=== PATIENT | male | born 2000 | race Caucasian/White ===

== ENCOUNTER 2025-07-27 11:07 | Emergency (ER) | payer OTHER, SELFPAY ==
[2025-07-27 11:12] VITALS: BP 162/80; PULSE 111; RESP 14; TEMP 36.4; O2SAT 100; BMI 21.4
--- NOTE | 2025-07-27 13:38 | ED.ABDPAIN ---
HPI - Abdominal Pain General Chief Complaint: Fever Stated Complaint: Constipated for a wk, bleeding Time Seen by Provider: 07/27/25 11:44 Mode of arrival: Ambulatory History of Present Illness HPI narrative: 25 years old male came today complaining of constipation, rectal pain, rectal bleeding for the last 2 weeks without fever, abdominal pain, vomiting, chest pain, shortness of breath, runny nose, sore throat, coughing, weight loss, history of Crohn disease, inflammatory bowel disease or family history of inflammatory bowel disease or bowel cancer or colon cancer. Related Data Home Medications ?Medication ?Instructions ?Recorded ?Confirmed albuterol sulfate 90 mcg/actuation 2 puff INH Q4HP PRN ##0 09/29/16 aerosol inhaler (Ventolin HFA) Previous Rx's ?Medication ?Instructions ?Recorded hydroxyzine pamoate 25 mg capsule 25 mg PO Q4HP PRN #40 caps 10/04/16 (Vistaril) oxycodone 5 mg tablet 5 mg PO Q4HP PRN #40 tabs 10/04/16 hydroxyzine pamoate 25 mg capsule 25 mg PO Q4HP PRN #40 caps 12/22/17 (Vistaril) hydrocortisone acetate 25 mg 25 mg HI BID #12 ea 07/27/25 rectal suppository (Anucort-HC) Allergies Allergy/AdvReac Type Severity Reaction Status Date / Time nut - unspecified (NUT - Allergy Mild VOMITING Unverified 07/27/25 11:12 UNSPECIFIED) Review of Systems Review of Systems Narrative: Positive for rectal pain, rectal bleeding, nausea. Negative for fever, chest pain, shortness of breath, runny nose, sore throat, coughing, weight loss, black stool, history of Crohn disease, inflammatory bowel disease, family history of colon cancer, bowel cancer. Patient History Smoking Status: Unknown if ever smoked Exam Narrative Exam Narrative: GENERAL: Alert awake without acute distress. HEAD: Atraumatic. Normocephalic. NECK: Trachea midline. Non tender CARDIOVASCULAR: Regular rate and rhythm without murmurs, gallops, or rubs. RESPIRATORY: Clear to auscultation. Breath sounds equal bilaterally. No wheezes, rales, or rhonchi. GASTROINTESTINAL: Abdomen soft, non-tender, nondistended. Rectal exam: Skin tag perianal area without external hemorrhoid. Empty rectal vault without mass. No blood detected on rectal exam. EXTREMITIES: No edema or joint tenderness. BACK: Nontender without deformity or crepitance. No flank tenderness. NEURO: AOx3. SKIN: No rash or erythema of visible areas Initial Vital Signs Initial Vital Signs: Vital Signs Temperature 97.6 F 07/27/25 11:12 Pulse Rate 111 H 07/27/25 11:12 Respiratory Rate 14 07/27/25 11:12 Blood Pressure 162/80 H 07/27/25 11:12 Pulse Oximetry 100 07/27/25 11:12 Oxygen Delivery Method Room Air 07/27/25 11:12 Course Orders Ordered: ED Orders 07/27/25 13:37 Complete Blood Count AUTO DIFF Stat Comprehensive Metabolic Panel Stat Lipase Stat 07/27/25 13:38 CT abdomen pelvis w con Stat Vital Signs Vital signs: Vital Signs - 8 hr 07/27/25 11:12 Temperature 97.6 F Pulse Rate 111 H Respiratory Rate 14 Blood Pressure 162/80 H Pulse Oximetry 100 Oxygen Delivery Method Room Air MDM - Abdominal Pain Lab Data 07/27/25 13:40 07/27/25 13:40 Labs: Lab Results 07/27/25 Range/Units 13:40 WBC 7.8 (4.5-11.0) X10^3/uL RBC 5.16 (4.5-5.9) X10^6/uL Hgb 14.4 (13.5-17.5) g/dL Hct 43.0 (41-53) % MCV 83.3 (80-100) fL MCH 28.0 (26-34) PG MCHC 33.6 (30-36) % RDW 14.1 (11.6-14.8) % Plt Count 225 (150-400) X10^3/uL Neut % (Auto) 58.3 (50-75) % Lymph % (Auto) 26.3 (25-40) % Grant % (Auto) 11.5 (3-14) % Eos % (Auto) 2.9 (2-4) % Baso % (Auto) 1.0 (0-2) % Neut # (Auto) 4600 (7614-1974) /uL Lymph # (Auto) 2100 (5341-7134) /uL Grant # (Auto) 900 (0-900) /uL Eos # (Auto) 200 (0-450) /uL Baso # (Auto) 100 (0-100) /uL Sodium 138 (137-145) mmol/L Potassium 4.1 (3.4-5.1) mmol/L Chloride 104 (98-107) mmol/L Carbon Dioxide 25 (22-32) mmol/L BUN 13 (9-20) mg/dL Creatinine 0.84 (0.66-1.25) mg/dL Estimated GFR > 60 (>60) mL/min BUN/Creatinine Ratio 15.5 (6-22) Glucose 92 (70-99) mg/dL Calcium 9.3 (8.4-10.2) mg/dL Total Bilirubin 1.0 (0.2-1.3) mg/dL AST 27 (17-59) IU/L ALT 29 (<50) IU/L Alkaline Phosphatase 82 (38-126) U/L Total Protein 8.1 (6.3-8.2) g/dL Albumin 4.7 (3.5-5.0) g/dL Globulin 3.4 (1.7-4.1) g/dL Albumin/Globulin Ratio 1.4 (1.0-2.8) Lipase 35 (23-300) U/L Imaging Data CT scan - abdomen/pelvis: Radiologist's Impression: PROCEDURE: CT ABDOMEN PELVIS W CON INDICATIONS: Rectal pain for 2 weeks. Intermittent rectal bleeding. TECHNIQUE: After the administration of intravenous contrast, axial sections acquired from the lung bases to the pubic symphysis. Coronal and sagittal reformats were performed. For radiation dose reduction, the following was used: automated exposure control, adjustment of mA and/or kV according to patient size. COMPARISON: None. FINDINGS: Image quality: Diagnostic. Lower Chest: No significant findings. ABDOMEN: Liver: No solid mass. Gallbladder: No radiopaque gallstones or wall thickening. Biliary ducts: No biliary dilation. Pancreas: No ductal dilation. Spleen: Size is within normal limits. Adrenal Glands: No adrenal nodules. Kidneys and Ureters: No hydronephrosis. No solid mass. No complex renal cystic lesion which requires follow up. Stomach and Bowel: Normal colonic caliber, without significant wall thickening. Moderate fecal debris throughout the colon. No obstruction. Fecal bolus in the rectum Peritoneum: No abnormal intraperitoneal fluid. No free air. Ventral Wall: No significant ventral hernia. Abdominal Nodes: No retroperitoneal or mesenteric adenopathy by size criteria. Vessels: Aorta and inferior vena cava are normal in size. PELVIS: Pelvic Organs: Unremarkable. Bladder: No bladder wall thickening accounting for underdistention. Pelvic Nodes: No enlarged lymph nodes. Miscellaneous: No inguinal hernias are seen. Bones: No aggressive osseous abnormality. IMPRESSION: Moderate fecal debris throughout the colon without obstruction. Fecal bolus in the rectum. Approved by: Jaylen Azul M.D. on 07/27/2025 at 13:42 MDM Narrative Medical decision making narrative: 25 years old male came today complaining of constipation, rectal pain, rectal bleeding for the last 2 weeks without fever, abdominal pain, vomiting, chest pain, shortness of breath, runny nose, sore throat, coughing, weight loss, history of Crohn disease, inflammatory bowel disease or family history of inflammatory bowel disease or bowel cancer or colon cancer. His CV exam, lung exam, abdominal exam were normal. Rectal exam showed perianal skin tag without external hemorrhoids, perianal abscess, discharge, blood, melena or hematochezia. He alert oriented x4 without acute distress in the ED. His CBC, CMP, lipase were normal. The CT scan abdomen and pelvis with contrast showed no acute finding but stool in the rectum. He was sent home with Anusol suppository twice a day for 6 day and to follow up with his PCP for GI referral outpatient. My impression could be internal hemorrhoid, proctitis, diverticulitis, abdominal hernia, bowel obstruction. Discharge Plan Departure Patient Disposition: Home Clinical Impression: Painful rectal bleeding Instructions: DI for Rectal Bleeding Activity Restrictions/Additional Instructions: Please come back to the emergency room if any worsening symptoms including but not limited to worsening pain, abdominal pain, nausea vomiting, dehydration, fever, worsening bleeding. 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 Prescriptions: New hydrocortisone acetate [Anucort-HC] 25 mg suppository 25 mg HI BID Qty: 12 0RF No Action albuterol sulfate [Ventolin HFA] 90 MCG/PUFF HFA aerosol inhaler 2 puff INH Q4HP PRNQty: 0 oxycodone 5 MG tablet 5 mg PO Q4HP PRNQty: 40 0RF hydroxyzine pamoate [Vistaril] 25 MG capsule 25 mg PO Q4HP PRNQty: 40 0RF hydroxyzine pamoate [Vistaril] 25 MG capsule 25 mg PO Q4HP PRNQty: 40 0RF Referrals: Taiwo Plasencia MD [Primary Care Provider, Medical] Stand Alone Forms: Patient Portal/API
[2025-07-27 13:53] LABS: Add Manual Diff / Slide Review NO; Hematocrit 43.0 % (41-53); Hemoglobin 14.4 g/dL (13.5-17.5); Lymphocytes Absolute Auto 2100 /uL (1100-4500); Mean Corpuscular HGB Conc 33.6 % (30-36); Mean Corpuscular Hemoglobin 28.0 PG (26-34); Mean Corpuscular Volume 83.3 fL (80-100); Platelet Count 225 X10^3/uL (150-400)
[2025-07-27 14:04] LABS: Alanine Aminotransferase 29 IU/L (<50); Albumin 4.7 g/dL (3.5-5.0); Albumin Globulin Ratio 1.4 (1.0-2.8); Alkaline Phosphatase 82 U/L (38-126); Blood Urea Nitrogen 13 mg/dL (9-20); Calcium 9.3 mg/dL (8.4-10.2); Carbon Dioxide 25 mmol/L (22-32); Chloride 104 mmol/L (98-107); Estimated Glomerular Filt Rate > 60 mL/min (>60); Globulin 3.4 g/dL (1.7-4.1); Glucose 92 mg/dL (70-99); HEMOLYSIS < 15 (0-50); Lipase 35 U/L (23-300); Potassium 4.1 mmol/L (3.4-5.1); Sodium 138 mmol/L (137-145); Total Protein 8.1 g/dL (6.3-8.2)
[2025-07-27 15:02] VITALS: BP 114/66; PULSE 69; O2SAT 99
== END 2025-07-27 15:02 | disposition home or self-care (01) ==
PROVIDERS: Emergency Provider Emergency Medicine
DX: K62.5 Hemorrhage of anus and rectum (principal); K59.00 Constipation, unspecified; K62.89 Other specified diseases of anus and rectum
CPT/HCPCS: 36415; 74177; 80053; 83690; 85025; 99283; 99284; Q9967